=== PATIENT | female | born 1995 | race Caucasian/White ===

== ENCOUNTER 2016-08-23 18:34 | Emergency (ER) | payer OTHER ==
[~2016-08-23] VITALS: Ht 172.7 cm; Wt 112.0 kg
[~2016-08-23 18:34] MED LIST: AMOX500C PO; CYCL-331 PO; DEXT5TAB27 PO; ETON68IM3 SQ; HYDR-971 PO; IBUP800T19 PO; depo shot
[2016-08-23 18:57] VITALS: BP 135/66
[2016-08-23] MEDS ORDERED: IBUP600T16 PO (19:05)
[2016-08-23] MEDS ORDERED: TRAM-48 PO (19:05)
[2016-08-23] MEDS ORDERED: CYCL-331 PO (19:05)
--- NOTE | 2016-08-23 19:06 | PHYS DOC ---
Past History Past Medical History: No Pertinent History Past Surgical History: No Surgical History Smoking: Cigarettes Alcohol Use: None Drug Use: None Adult General Chief Complaint Chief Complaint: LOWER EXT PAIN HPI HPI Patient is a 4-year-old female who presents here today complaining of pain to her right gluteal region radiating down her right leg. 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 Patient reports that she injured her back several months ago and was on light duty for several months after the injury. Patient reports today she was complaining of discomfort to her U region radiating down her right leg. Patient has any weakness or paresthesias to her lower 70s. Patient denies any loss of bowel or bladder function. Patient denies any perineal paresthesias. Patient reports pain increases with any ambulation. Patient has any fevers shakes chills nausea vomiting diarrhea chest pain or shortness of breath. Patient is not allergic to any medications. Patient has no past medical history. No history of hypertension diabetes liver longer kidney problems. Patient does not smoke or do any drugs. Patient's physical exam is remarkable for tender to palpation to her right gluteal region. This is 100% reproducible to a cause her to come to the ED. Patient is able to and bili without any difficulty but does appear to be in some discomfort. Patient's motor strength is 5 out of 5 upper and lower extremities. Patient neurologically intact. She is alert awake oriented 3. Patient is a nonfocal neuro exam. Patient has no tenderness to C-spine T-spine or L-spine on palpation. Patient does not have any evidence of retroperitonitis. Patient does not have any evidence of an epidural abscess. Patient is not consistent with a kidney stone. Patient's ER hospital course was significant for receiving Flexeril Toradol and will be sent home with [place] ibuprofen and Flexeril. Patient's clinically hemodynamically stable. Patient was advised to follow up with her primary care physician workman's comp doctor for further evaluation and management of her sciatica-type pain. Review of Systems Review of Systems Constitutional: Denies fever or chills [] Eyes: Denies change in visual acuity, redness, or eye pain [] HENT: Denies nasal congestion or sore throat [] All other review systems are negative except as documented in the history of present illness portion. Allergies Allergies Allergies Coded Allergies Type Severity Reaction Last Updated Verified No Known Drug Allergies 08/22/14 No Physical Exam Physical Exam Constitutional: Well developed, well nourished, no acute distress, non-toxic appearance. [] HENT: Normocephalic, atraumatic, bilateral external ears normal, oropharynx moist, no oral exudates, nose normal. [] Eyes: PERRLA, EOMI, conjunctiva normal, no discharge. [] Neck: Normal range of motion, no tenderness, supple, no stridor. [] Cardiovascular:Heart rate regular Lungs & Thorax: Bilateral breath sounds clear Abdomen: Nondistended Skin: Warm, dry, Back: No tenderness, no CVA tenderness. [] Extremities: Tenderness to her right buttock region radiating down her right leg., no cyanosis, no clubbing, ROM intact, no edema orsymptomsconsistentwithDVT.. [] Neurologic: Alert and oriented X 3, normal motor function, normal sensory function, no focal deficits noted. [] Psychologic: Affect normal, judgement normal, mood normal. [] Current Patient Data Vital Signs Vital Signs Date Time Temp Pulse Resp B/P (MAP) Pulse Ox O2 Delivery O2 Flow Rate FiO2 08/23/16 18:57 98.7 83 20 97 Room Air EKG EKG [] Radiology/Procedures Radiology/Procedures [] Course & Med Decision Making Course & Med Decision Making Pertinent Labs and Imaging studies reviewed. (See chart for details) [] Dragon Disclaimer Dragon Disclaimer This chart was dictated in whole or in part using Voice Recognition software in a busy, high-work load, and often noisy Emergency Department environment. It may contain unintended and wholly unrecognized errors or omissions. Departure Departure: Impression: Primary Impression: Sciatica Disposition: HOME, SELF-CARE Condition: IMPROVED Referrals: ELVIRA HINES APRN (PCP) Patient Instructions: Sciatica with [facility] Scripts Tramadol Hcl (ULTRAM) 50 Mg Tablet 50 MG PO PRN Q6HRS Y for PAIN, #20 TAB Prov: YAMILET WOODS MD 08/23/16 Ibuprofen (IBUPROFEN) 600 Mg Tablet 600 MG PO QID Y for PAIN, #20 Prov: YAMILET WOODS MD 08/23/16 Cyclobenzaprine Hcl (CYCLOBENZAPRINE HCL) 10 Mg Tablet 1 TAB PO TID, #30 TAB Prov: YAMILET WOODS MD 08/23/16 Problem Qualifiers Primary Impression: Sciatica Laterality: right Qualified Codes: M54.31 - Sciatica, right side YAMILET WOODS MD August 23, 2016 19:06
[2016-08-23] MEDS ORDERED: traMADol 50 MG TABLET PO ONE (19:15)
[2016-08-23] MEDS ORDERED: KETOROLAC 30 MG/ML VIAL. IM ONE (19:15)
== END 2016-08-23 18:57 | disposition home or self-care (01) ==
LOC: ER 18:34
DX: M54.41 Lumbago with sciatica, right side (principal); F17.210 Nicotine dependence, cigarettes, uncomplicated
CPT/HCPCS: 96372; 99283; J1885

== ENCOUNTER 2017-01-25 23:06 | Emergency (ER) | payer OTHER ==
[~2017-01-25] VITALS: Ht 172.7 cm; Wt 110.6 kg
[~2017-01-25 23:06] MED LIST changes: +IBUP600T16 PO; +TRAM-48 PO
[2017-01-25] MEDS ORDERED: 0.9 % SODIUM CHLORIDE 10 ML DISP.SYRIN. IV PRN (23:15)
--- NOTE | 2017-01-25 23:19 | PHYS DOC ---
Past History Past Medical History: No Pertinent History Past Surgical History: No Surgical History Smoking: Cigarettes Alcohol Use: None Drug Use: None Adult General Chief Complaint Chief Complaint: abdominal pain and vaginal bleeding HPI HPI Patient is a pleasant whose last menstrual period was approximate 4 weeks ago. She presents with lower abdominal pain cramping and menorrhagia as she believes she might be having a miscarriage. Although she has no documented test at home she admits that she began a Depo-Provera shot 4 weeks ago and she had intercourse the first week which is not necessary protective. She's passed large clots with some she describes "" tissue. She's had super crampy abdominal pain that began earlier today. She was able to collect some the samples although she is discarded them she was supposed to follow-up with her primary care doctor today. She denies any dysuria urgency or frequency, back pain, nausea, vomiting or diarrhea. She dip denies any breast tenderness. 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 She denies any sick contacts, trauma or travel outside the country. She denies any history of ovarian cysts or ectopic . She also denies any use of infertility medications, prior instrumentation to her abdomen , or history of PID or sexual transmitted diseases. Patient's pain is moderate with no radiation to the back and is not change with position or activity. It does come in waves and makes her double over in pain when she hasn't. Review of Systems Review of Systems Constitutional: Denies fever or chills [] Eyes: Denies change in visual acuity, redness, or eye pain [] HENT: Denies nasal congestion or sore throat [] Respiratory: Denies cough or shortness of breath [] Cardiovascular: No additional information not addressed in HPI [] GI: He does complain of crampy lower abdominal pain with some nausea but no vomiting of bloody stools or diarrhea. : Denies dysuria or hematuria does complain of some mild vaginal bleeding and passage of clots.[] Musculoskeletal: Denies back pain or joint pain [] Integument: Denies rash or skin lesions [] Neurologic: Denies headache, focal weakness or sensory changes [] Endocrine: Denies polyuria or polydipsia [] Allergies Allergies Allergies Coded Allergies Type Severity Reaction Last Updated Verified No Known Drug Allergies 5/10/15 No Physical Exam Physical Exam Vital signs recorded on the chart within normal limits. Constitutional: Well developed, well nourished, no acute distress, non-toxic appearance. [] HENT: Normocephalic, atraumatic, bilateral external ears normal, oropharynx moist, no oral exudates, nose normal. [] Eyes: PERRLA, EOMI, conjunctiva normal, no discharge. [] Neck: Normal range of motion, no tenderness, supple, no stridor. [] Cardiovascular:Heart rate regular rhythm, no murmur [] Lungs & Thorax: Bilateral breath sounds clear to auscultation [] Abdomen: Bowel sounds normal, soft, no tenderness, no masses, no pulsatile masses. exam:[] Skin: Warm, dry, no erythema, no rash. [] Back: No tenderness, no CVA tenderness. [] Neurologic: Alert and oriented X 3 Psychologic: Affect normal, judgement normal, mood normal. [] Current Patient Data Lab Results Laboratory Tests Test 01/25/17 23:22 01/25/17 23:39 White Blood Count 11.6 x10^3/uL (4.0-11.0) H Red Blood Count 4.87 x10^6/uL (3.50-5.40) Hemoglobin 14.1 g/dL (12.0-15.5) Hematocrit 41.1 % (36.0-47.0) Mean Corpuscular Volume 84 fL (79-100) Mean Corpuscular Hemoglobin 29 pg (25-35) Mean Corpuscular Hemoglobin Concent 34 g/dL (31-37) Red Cell Distribution Width 13.7 % (11.5-14.5) Platelet Count 271 x10^3/uL (140-400) Neutrophils (%) (Auto) 59 % (31-73) Lymphocytes (%) (Auto) 28 % (24-48) Monocytes (%) (Auto) 9 % (0-9) Eosinophils (%) (Auto) 3 % (0-3) Basophils (%) (Auto) 1 % (0-3) Neutrophils # (Auto) 6.9 x10^3uL (1.8-7.7) Lymphocytes # (Auto) 3.2 x10^3/uL (1.0-4.8) Monocytes # (Auto) 1.1 x10^3/uL (0.0-1.1) Eosinophils # (Auto) 0.3 x10^3/uL (0.0-0.7) Basophils # (Auto) 0.1 x10^3/uL (0.0-0.2) Sodium Level 141 mmol/L (136-145) Potassium Level 3.9 mmol/L (3.5-5.1) Chloride Level 105 mmol/L (98-107) Carbon Dioxide Level 26 mmol/L (21-32) Anion Gap 10 (6-14) Blood Urea Nitrogen 13 mg/dL (7-20) Creatinine 1.0 mg/dL (0.6-1.0) Estimated GFR (Cockcroft-Gault) 70.7 Glucose Level 87 mg/dL (70-99) Calcium Level 9.0 mg/dL (8.5-10.1) Total Bilirubin 0.3 mg/dL (0.2-1.0) Direct Bilirubin 0.1 mg/dL (0.0-0.2) Aspartate Amino Transferase (AST) 13 U/L (15-37) L Alanine Aminotransferase (ALT) 36 U/L (14-59) Alkaline Phosphatase 85 U/L (46-116) Total Protein 7.3 g/dL (6.4-8.2) Albumin 3.9 g/dL (3.4-5.0) POC Urine HCG, Qualitative hcg negative (Negative) EKG EKG [] Radiology/Procedures Radiology/Procedures [] Course & Med Decision Making Course & Med Decision Making Pertinent Labs and Imaging studies reviewed. (See chart for details) Patient presented with suspicion of miscarriage in early she is in fact not . And she admits that she is not actively bleeding at this time. Patient will still consent to a CBC CMP and urinalysis. She is declined pelvic exam at this time. We will also not give her IV fluids or place a saline lock at this time per her request. Patient will be offered some Naprosyn for discharge home and Toradol this time for her dysmenorrhea. Patient's CBC is normal patient's CMP is normal patient's urine test is negative. [] Dragon Disclaimer Dragon Disclaimer This chart was dictated in whole or in part using Voice Recognition software in a busy, high-work load, and often noisy Emergency Department environment. It may contain unintended and wholly unrecognized errors or omissions. Departure Departure: Impression: Primary Impression: Dysmenorrhea Disposition: 01 HOME, SELF-CARE Condition: STABLE Referrals: ELVIRA HINES APRN (PCP) Patient Instructions: Abdominal Pain (Nonspecific), Dysmenorrhea Additional Instructions: My discharge plan Follow up: In addition patient is asked to followup with their primary doctor, within a week for followup examination and to address patient's ongoing medical conditions. Patient is advised that in the Emergency Department primary complaints are addressed and only in light of known signs and symptoms. Patient should return immediately to the emergency department if new signs and symptoms develop or patient's condition worsens in any way. At time of discharge patient was in stable condition and had verbalized understanding of the discharge instructions. Scripts Naproxen (NAPROSYN) 500 Mg Tablet 1 TAB PO BID, #20 TAB 1 Refill Prov: EDELMIRA TENA MD 01/26/17 EDELMIRA TENA MD Jan 25, 2017 23:19
[2017-01-25] MEDS ORDERED: IV NORMAL SALINE 1,000ML 1,000 ML IV SCH (23:30)
[2017-01-26 00:21] LABS: BASO # 0.1 x10^3/uL (0.0-0.2); BASO % 1 % (0-3); EOS # 0.3 x10^3/uL (0.0-0.7); EOS % 3 % (0-3); HEMATOCRIT 41.1 % (36.0-47.0); HEMOGLOBIN 14.1 g/dL (12.0-15.5); LYMPH # 3.2 x10^3/uL (1.0-4.8); LYMPH % 28 % (24-48); MEAN CORPUSCULAR HEMOGLOBIN 29 pg (25-35); MEAN CORPUSCULAR HGB CONC 34 g/dL (31-37); MEAN CORPUSCULAR VOLUME 84 fL (79-100); MONO # 1.1 x10^3/uL (0.0-1.1); MONO % 9 % (0-9); NEUT # 6.9 x10^3uL (1.8-7.7); NEUT % 59 % (31-73); PLATELET COUNT 271 x10^3/uL (140-400); RED BLOOD COUNT 4.87 x10^6/uL (3.50-5.40); RED CELL DISTRIBUTION WIDTH 13.7 % (11.5-14.5); WHITE BLOOD COUNT 11.6 x10^3/uL (4.0-11.0)
[2017-01-26 00:23] VITALS: BP 160/93
[2017-01-26 00:27] LABS: ALBUMIN 3.9 g/dL (3.4-5.0); DIRECT BILIRUBIN 0.1 mg/dL (0.0-0.2); GFR 70.7; POTASSIUM 3.9 mmol/L (3.5-5.1); TOTAL BILIRUBIN 0.3 mg/dL (0.2-1.0); TOTAL PROTEIN 7.3 g/dL (6.4-8.2)
[2017-01-26] MEDS ORDERED: KETOROLAC 60 MG/2 ML VIAL. IM ONE (00:30)
[2017-01-26] MEDS ORDERED: NAPR500T PO (00:38)
[2017-01-26 00:43] LABS: BILIRUBIN,URINE NEG (NEG); CLARITY,URINE HAZY; COLOR,URINE YELLOW; GLUCOSE,URINE NEG (NEG)
[2017-01-26 00:44] LABS: BACTERIA,URINE FEW /HPF (0-FEW); NITRITE,URINE NEG (NEG); SQUAMOUS EPITHELIAL CELL,UR FEW /LPF; UROBILINOGEN,URINE 0.2 mg/dL (0.2 mg/dL)
== END 2017-01-26 00:55 | disposition home or self-care (01) ==
LOC: ER 23:06
DX: N94.6 Dysmenorrhea, unspecified (principal); F17.210 Nicotine dependence, cigarettes, uncomplicated
CPT/HCPCS: 36415; 80048; 80076; 81001; 81025; 84702; 85025; 96372; 99284; J1885

== ENCOUNTER 2017-06-11 22:33 | Emergency (ER) | payer OTHER ==
[~2017-06-11] VITALS: Ht 172.7 cm; Wt 105.0 kg
[2017-06-11] MEDS: IV NORMAL SALINE 1,000ML 1,000 ML IV SCH (00:02)
[2017-06-11] MEDS: ONDANSETRON ODT 4 MG TAB.RAPDIS PO ONE (00:05)
[~2017-06-11 22:33] MED LIST changes: +NAPR-683 PO
--- NOTE | 2017-06-11 22:36 | ED.ADGEN ---
Past History Past Medical History: No Pertinent History Past Surgical History: No Surgical History Smoking: Cigarettes Alcohol Use: None Drug Use: None Adult General Chief Complaint Chief Complaint " I got this Rt. flank pain... I want to vomit.. I had a chemical of .. Methotrexate.. at [facility].. I had some bleeding at first but that is all over with..."Now it hurts to pee..." HPI HPI Patient is a 22 year old female who presents with above hx and complaints nausea , flank pain, malaise, dysuria. Patient recently underwent methotrexate induced on 05/21. Patient reports initially some bleeding but now that has resolved. Patient still has some vaginal discharge. Patient has had approximately less 50 sex partners in lifetime. No history of STDs. Has had diagnosis of bacterial vaginosis. No history of trauma. 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 . No history immunosuppression. No history of travel. Patient localizes her pain to the right lower quadrant. No history of kidney stones. No history of ovarian cysts. Denies any history of intake bad food. Denies any history of constipation or diarrhea. Patient denies any change in stool characteristics. Review of Systems Review of Systems Constitutional: Denies fever or chills [] Eyes: Denies change in visual acuity, redness, or eye pain [] HENT: Denies nasal congestion or sore throat [] Respiratory: Denies cough or shortness of breath [] Cardiovascular: No additional information not addressed in HPI [] GI: Complaints are right lower quadrant abdominal pain, nausea,. Denies vomiting, bloody stools or diarrhea [] : Denies dysuria or hematuria [] Musculoskeletal: Denies back pain or joint pain [] Integument: Denies rash or skin lesions [] Neurologic: Denies headache, focal weakness or sensory changes [] Endocrine: Denies polyuria or polydipsia [] All other systems were reviewed and found to be within normal limits, except as documented in this note. Family History Family History Noncontributory Current Medications Current Medications Current Medications Medications (Trade) Dose Ordered Sig/Wang Start Time Stop Time Status Last Admin Dose Admin Azithromycin (Zithromax) 1,000 mg 1X ONCE 06/12/17 01:15 06/12/17 01:16 DC 06/12/17 01:42 1,000 MG Ceftriaxone Sodium 1 gm/ Sodium Chloride 50 ml @ 100 mls/hr 1X ONCE 06/12/17 01:15 06/12/17 01:44 UNV Ceftriaxone Sodium (Rocephin) 1 gm ONCE ONCE 06/12/17 01:30 06/12/17 01:31 DC 06/12/17 01:42 1 GM Info (Do NOT chart on this entry -- for MONITORING) 1 each PRN DAILY PRN 06/12/17 00:15 06/12/17 02:19 DC 06/12/17 00:26 1 EACH Iohexol (Omnipaque 300 Mg/ml) 75 ml 1X ONCE 06/12/17 00:00 06/12/17 00:05 DC 06/12/17 00:26 75 ML Ketorolac Tromethamine (Toradol) 30 mg 1X ONCE 06/12/17 01:15 06/12/17 01:17 DC 06/12/17 01:42 30 MG Metronidazole (Flagyl) 2,000 mg 1X ONCE 06/12/17 01:15 06/12/17 01:17 DC 06/12/17 01:43 2,000 MG Ondansetron HCl (Zofran Odt) 8 mg 1X ONCE 06/11/17 23:00 06/11/17 23:01 DC 06/11/17 00:05 8 MG Ondansetron HCl (Zofran) 8 mg 1X ONCE 06/12/17 01:15 06/12/17 01:17 DC 06/12/17 01:47 8 MG Sodium Chloride 1,000 ml @ 1,000 mls/hr Q1H 06/11/17 23:00 06/11/17 23:59 DC 06/11/17 00:02 1,000 MLS/HR Allergies Allergies Allergies Coded Allergies Type Severity Reaction Last Updated Verified No Known Drug Allergies 08/22/14 No Physical Exam Physical Exam Constitutional: Well developed, well nourished, moderately acute distress, non- toxic appearance. [] HENT: Normocephalic, atraumatic, bilateral external ears normal, oropharynx moist, no oral exudates, nose normal. [] Eyes: PERRLA, EOMI, conjunctiva normal, no discharge. [] Neck: Normal range of motion, no tenderness, supple, no stridor. [] Cardiovascular:Heart rate regular rhythm, no murmur [] Lungs & Thorax: Bilateral breath sounds clear to auscultation [] Abdomen: Bowel sounds normal, soft, right lower quadrant tenderness, no masses, no pulsatile masses. No flank tenderness. Rebound to Rt. lower flank. Vaginal discharge. Cervical motion tenderness. Rt. adnexal tenderness. Skin: Warm, dry, no erythema, no rash. [] Back: No tenderness, no CVA tenderness. [] Extremities: No tenderness, no cyanosis, no clubbing, ROM intact, no edema. [] Mild Rt. psoas and heel tap. Neurologic: Alert and oriented X 3, normal motor function, normal sensory function, no focal deficits noted. [] Psychologic: Affect anxious, judgement normal, mood normal. [] Current Patient Data Vital Signs Vital Signs Date Time Temp Pulse Resp B/P (MAP) Pulse Ox O2 Delivery O2 Flow Rate FiO2 06/12/17 01:52 68 16 138/95 (109) 100 Room Air 06/11/17 22:33 98.0 Lab Results Laboratory Tests Test 06/11/17 22:49 06/11/17 22:54 06/11/17 23:43 Urine Collection Type Unknown Urine Color Yellow Urine Clarity Clear Urine pH 5.5 Urine Specific [place] 1.015 Urine Protein Neg (NEG-TRACE) Urine Glucose (UA) Neg mg/dL (NEG) Urine Ketones (Stick) Neg mg/dL (NEG) Urine Blood Neg (NEG) Urine Nitrite Neg (NEG) Urine Bilirubin Neg (NEG) Urine Urobilinogen Dipstick 0.2 mg/dL (0.2 mg/dL) Urine Leukocyte Esterase Neg (NEG) Urine RBC 0 /HPF (0-2) Urine WBC Occ /HPF (0-4) Urine Squamous Epithelial Cells Few /LPF Urine Bacteria 0 /HPF (0-FEW) Urine Opiates Screen Neg (NEG) Urine Methadone Screen Neg (NEG) Urine Barbiturates Neg (NEG) Urine Phencyclidine Screen Neg (NEG) Urine Amphetamine/Methamphetamine Neg (NEG) Urine Benzodiazepines Screen Neg (NEG) Urine Cocaine Screen Neg (NEG) Urine Cannabinoids Screen Neg (NEG) Urine Ethyl Alcohol Neg (NEG) POC Urine HCG, Qualitative hcg negative (Negative) White Blood Count 11.4 x10^3/uL (4.0-11.0) H Red Blood Count 4.74 x10^6/uL (3.50-5.40) Hemoglobin 14.0 g/dL (12.0-15.5) Hematocrit 40.8 % (36.0-47.0) Mean Corpuscular Volume 86 fL (79-100) Mean Corpuscular Hemoglobin 30 pg (25-35) Mean Corpuscular Hemoglobin Concent 34 g/dL (31-37) Red Cell Distribution Width 13.4 % (11.5-14.5) Platelet Count 261 x10^3/uL (140-400) Neutrophils (%) (Auto) 64 % (31-73) Lymphocytes (%) (Auto) 26 % (24-48) Monocytes (%) (Auto) 8 % (0-9) Eosinophils (%) (Auto) 2 % (0-3) Basophils (%) (Auto) 0 % (0-3) Neutrophils # (Auto) 7.2 x10^3uL (1.8-7.7) Lymphocytes # (Auto) 3.0 x10^3/uL (1.0-4.8) Monocytes # (Auto) 0.9 x10^3/uL (0.0-1.1) Eosinophils # (Auto) 0.2 x10^3/uL (0.0-0.7) Basophils # (Auto) 0.0 x10^3/uL (0.0-0.2) Prothrombin Time 10.2 SEC (9.4-11.4) Prothrombin Time INR 1.0 (0.9-1.1) PTT 25 SEC (23-33) Maternal Serum HCG Beta Subunit 6 mIU/mL (0-6) Sodium Level 140 mmol/L (136-145) Potassium Level 3.5 mmol/L (3.5-5.1) Chloride Level 104 mmol/L (98-107) Carbon Dioxide Level 28 mmol/L (21-32) Anion Gap 8 (6-14) Blood Urea Nitrogen 9 mg/dL (7-20) Creatinine 0.9 mg/dL (0.6-1.0) Estimated GFR (Cockcroft-Gault) 79.0 Glucose Level 83 mg/dL (70-99) Calcium Level 9.1 mg/dL (8.5-10.1) Total Bilirubin 0.5 mg/dL (0.2-1.0) Direct Bilirubin 0.1 mg/dL (0.0-0.2) Aspartate Amino Transferase (AST) 19 U/L (15-37) Alanine Aminotransferase (ALT) 32 U/L (14-59) Alkaline Phosphatase 81 U/L (46-116) Total Protein 7.0 g/dL (6.4-8.2) Albumin 3.7 g/dL (3.4-5.0) Lipase 105 U/L (73-393) Microbiology 06/11/17 Wet Prep - Final, Complete Laboratory Tests Test 06/11/17 22:49 06/11/17 22:54 06/11/17 23:43 Urine Collection Type Unknown Urine Color Yellow Urine Clarity Clear Urine pH 5.5 Urine Specific [place] 1.015 Urine Protein Neg (NEG-TRACE) Urine Glucose (UA) Neg mg/dL (NEG) Urine Ketones (Stick) Neg mg/dL (NEG) Urine Blood Neg (NEG) Urine Nitrite Neg (NEG) Urine Bilirubin Neg (NEG) Urine Urobilinogen Dipstick 0.2 mg/dL (0.2 mg/dL) Urine Leukocyte Esterase Neg (NEG) Urine RBC 0 /HPF (0-2) Urine WBC Occ /HPF (0-4) Urine Squamous Epithelial Cells Few /LPF Urine Bacteria 0 /HPF (0-FEW) Urine Opiates Screen Neg (NEG) Urine Methadone Screen Neg (NEG) Urine Barbiturates Neg (NEG) Urine Phencyclidine Screen Neg (NEG) Urine Amphetamine/Methamphetamine Neg (NEG) Urine Benzodiazepines Screen Neg (NEG) Urine Cocaine Screen Neg (NEG) Urine Cannabinoids Screen Neg (NEG) Urine Ethyl Alcohol Neg (NEG) POC Urine HCG, Qualitative hcg negative (Negative) White Blood Count 11.4 x10^3/uL (4.0-11.0) H Red Blood Count 4.74 x10^6/uL (3.50-5.40) Hemoglobin 14.0 g/dL (12.0-15.5) Hematocrit 40.8 % (36.0-47.0) Mean Corpuscular Volume 86 fL (79-100) Mean Corpuscular Hemoglobin 30 pg (25-35) Mean Corpuscular Hemoglobin Concent 34 g/dL (31-37) Red Cell Distribution Width 13.4 % (11.5-14.5) Platelet Count 261 x10^3/uL (140-400) Neutrophils (%) (Auto) 64 % (31-73) Lymphocytes (%) (Auto) 26 % (24-48) Monocytes (%) (Auto) 8 % (0-9) Eosinophils (%) (Auto) 2 % (0-3) Basophils (%) (Auto) 0 % (0-3) Neutrophils # (Auto) 7.2 x10^3uL (1.8-7.7) Lymphocytes # (Auto) 3.0 x10^3/uL (1.0-4.8) Monocytes # (Auto) 0.9 x10^3/uL (0.0-1.1) Eosinophils # (Auto) 0.2 x10^3/uL (0.0-0.7) Basophils # (Auto) 0.0 x10^3/uL (0.0-0.2) Prothrombin Time 10.2 SEC (9.4-11.4) Prothrombin Time INR 1.0 (0.9-1.1) PTT 25 SEC (23-33) Maternal Serum HCG Beta Subunit 6 mIU/mL (0-6) Sodium Level 140 mmol/L (136-145) Potassium Level 3.5 mmol/L (3.5-5.1) Chloride Level 104 mmol/L (98-107) Carbon Dioxide Level 28 mmol/L (21-32) Anion Gap 8 (6-14) Blood Urea Nitrogen 9 mg/dL (7-20) Creatinine 0.9 mg/dL (0.6-1.0) Estimated GFR (Cockcroft-Gault) 79.0 Glucose Level 83 mg/dL (70-99) Calcium Level 9.1 mg/dL (8.5-10.1) Total Bilirubin 0.5 mg/dL (0.2-1.0) Direct Bilirubin 0.1 mg/dL (0.0-0.2) Aspartate Amino Transferase (AST) 19 U/L (15-37) Alanine Aminotransferase (ALT) 32 U/L (14-59) Alkaline Phosphatase 81 U/L (46-116) Total Protein 7.0 g/dL (6.4-8.2) Albumin 3.7 g/dL (3.4-5.0) Lipase 105 U/L (73-393) Microbiology 06/11/17 Wet Prep - Final, Complete EKG EKG [] Radiology/Procedures Radiology/Procedures CT of abdomen shows no obvious surgical processes. Ovarian cyst on right. My interpretation of acute abdomen shows[] no acute cardiopulmonary findings. No free air under the diaphragm. Nipple studs. Increased stool Course & Med Decision Making Course & Med Decision Making Pertinent Labs and Imaging studies reviewed. (See chart for details). She stay on a clear fluid diet. No solid or milk products. Take Keflex 500 x3 times a day. Follow-up primary pending cultures. Vaginal rest. Must follow up pending labs and cultures. [] Final Impression Final Impression 1. Abdomen Pain 2. Dysuria[] 3. Leukocytosis 4. Ovarian Cysts 5. Bacterial Vaginosis Problems: Dragon Disclaimer Dragon Disclaimer This electronic medical record was generated, in whole or in part, using a voice recognition dictation system. VIDHI SONI MD Jun 11, 2017 22:36
[2017-06-11 23:24] LABS: BARBITURATES NEG (NEG); BENZODIAZEPINES NEG (NEG); CANNABINOIDS NEG (NEG); COCAINE NEG (NEG); METHADONE NEG (NEG); OPIATES NEG (NEG); PHENCYCLIDINE NEG (NEG)
[2017-06-11 23:26] LABS: AMPHETAMINE/METHAMPHETAMINE NEG (NEG)
[2017-06-11 23:31] LABS: BACTERIA,URINE 0 /HPF (0-FEW); BILIRUBIN,URINE NEG (NEG); CLARITY,URINE CLEAR; COLOR,URINE YELLOW; GLUCOSE,URINE NEG (NEG); NITRITE,URINE NEG (NEG); RBC,URINE 0 /HPF (0-2); SQUAMOUS EPITHELIAL CELL,UR FEW /LPF; UROBILINOGEN,URINE 0.2 mg/dL (0.2 mg/dL); WBC,URINE OCC /HPF (0-4)
[2017-06-12 00:10] LABS: BASO % 0 % (0-3); EOS # 0.2 x10^3/uL (0.0-0.7); EOS % 2 % (0-3); HEMATOCRIT 40.8 % (36.0-47.0); LYMPH % 26 % (24-48); MEAN CORPUSCULAR HEMOGLOBIN 30 pg (25-35); MEAN CORPUSCULAR HGB CONC 34 g/dL (31-37); MEAN CORPUSCULAR VOLUME 86 fL (79-100); MONO # 0.9 x10^3/uL (0.0-1.1); MONO % 8 % (0-9); NEUT # 7.2 x10^3uL (1.8-7.7); NEUT % 64 % (31-73); PLATELET COUNT 261 x10^3/uL (140-400); RED BLOOD COUNT 4.74 x10^6/uL (3.50-5.40); RED CELL DISTRIBUTION WIDTH 13.4 % (11.5-14.5); WHITE BLOOD COUNT 11.4 x10^3/uL (4.0-11.0)
[2017-06-12 00:21] LABS: ALBUMIN 3.7 g/dL (3.4-5.0); CALCIUM 9.1 mg/dL (8.5-10.1); CREATININE 0.9 mg/dL (0.6-1.0); DIRECT BILIRUBIN 0.1 mg/dL (0.0-0.2); POTASSIUM 3.5 mmol/L (3.5-5.1); TOTAL BILIRUBIN 0.5 mg/dL (0.2-1.0)
[2017-06-12] MEDS: CONTRAST GIVEN MC PRN (00:26)
[2017-06-12] MEDS: IOHEXOL 300 MG/ML 75 ML VIAL. IV ONE (00:26)
--- NOTE | 2017-06-12 00:39 | RAD ---
CT ABD PELV W/ IV CONTRST ONLY dated 06/12/2017 12:13 AM Indication: Abdominal pain.RLQ ABDOMINAL PAIN X 2 DAYS, PATIENT HAD A CHEMICAL 05/21/17
NO HX OF ANY ABDOMINAL SURGERIES IN THE PAST
NO PREVIOUS FOR COMPARISON
GAVE OMNI 300 75ML IV - TOLERATED WELL. Comparison: No comparison is available. Technique: Contiguous axial imaging of the abdomen and pelvis performed after the administration of 75 cc Omnipaque 300. One or more of the following individualized dose reduction techniques were utilized for this examination: 1. Automated exposure control 2. Adjustment of the mA and/or kV according to patient size 3. Use of iterative reconstruction technique Findings: Limited images of lung bases are clear. Heart size within normal limits. No pleural or pericardial effusion. Liver, spleen, pancreas, adrenal glands, gallbladder and kidneys are unremarkable. Unopacified GI tract normal in caliber and contour. No focal bowel wall thickening. The appendix is normal in caliber. No ascites or lymphadenopathy. Abdominal aorta normal in caliber. Images of pelvis show mildly distended urinary bladder. Uterus and adnexa are unremarkable. 1.7 cm right ovarian cyst. No free fluid or pelvic lymphadenopathy. Bone windows show no acute findings. IMPRESSION: 1. No acute abnormality of abdomen or pelvis. Normal appendix. 2. Small right ovarian cyst. Electronically signed by: Terrence Solano MD (06/12/2017 12:36 AM) [id number]
[2017-06-12] MEDS ORDERED: CEPH-264 PO (01:10)
[2017-06-12] MEDS ORDERED: HYDR-79 PO (01:10)
[2017-06-12] MEDS: AZITHROMYCIN 250 MG TABLET. PO ONE (01:42)
[2017-06-12] MEDS: cefTRIAXone IV Push 1 GM VIAL. IVP ONE (01:42)
[2017-06-12] MEDS: KETOROLAC 30 MG/ML VIAL. IV ONE (01:42)
[2017-06-12] MEDS: metroNIDAZOLE 500 MG TABLET PO ONE (01:43)
[2017-06-12] MEDS: ONDANSETRON PF 4 MG/2 ML VIAL. IV ONE (01:47)
[2017-06-12 01:52] VITALS: BP 138/95
--- NOTE | 2017-06-12 07:56 | RAD ---
Acute abdomen series with chest, 3 views, 06/11/2017: History: Abdominal pain The abdominal gas pattern is unremarkable without evidence of obstruction. No free air seen in the abdomen. There is no evidence of organomegaly or abnormal abdominal calcifications. The heart size is normal. The lungs are clear. There is no evidence of pleural fluid. IMPRESSION: No acute abdominal abnormality is detected.
[2017-06-13 14:12] LABS: CHLAMYDIA PROBE Negative (Negative)
== END 2017-06-12 01:55 | disposition home or self-care (01) ==
LOC: ER 22:33
DX: N76.0 Acute vaginitis (principal); B96.89 Other specified bacterial agents as the cause of diseases classified elsewhere; N83.201 Unspecified ovarian cyst, right side; D72.829 Elevated white blood cell count, unspecified; F17.210 Nicotine dependence, cigarettes, uncomplicated
CPT/HCPCS: 36415; 74022; 74177; 80048; 80076; 80307; 81001; 81025; 83690; 84702; 85025; 85610; 85730; 87491; 87591; 96361; 96374; 96375; 99285; J0456; J0696; J1885; J2405; Q0111; Q0162; Q9967; G0479; J7030

== ENCOUNTER → 2017-09-06 | Outpatient (CLI) | payer SELFPAY ==
[~2017-09-06] MED LIST changes: +CEPH-264 PO; +HYDR-79 PO
--- NOTE | 2017-09-06 13:10 | RAD ---
EXAM: Left shoulder, 3 views. HISTORY: Pain. COMPARISON: None. FINDINGS: 3 views of the left shoulder obtained. There is no fracture, dislocation or subluxation. IMPRESSION: No acute osseous finding. Electronically signed by: Lyric Reich MD (09/06/2017 1:07 PM) [place] [id number]
== END | disposition home or self-care (01) ==
LOC: PMG 10:38
PROVIDERS: ATTEND Physician Assistant
DX: M25.512 Pain in left shoulder (principal)
CPT/HCPCS: 73030

== ENCOUNTER → 2018-01-15 | Outpatient (CLI) | payer OTHER ==
--- NOTE | 2018-01-15 13:52 | RAD ---
Obstetrical ultrasound, 01/15/2018: HISTORY: Uterine size/date discrepancy There is a single intrauterine fetus in a cephalic orientation. The biparietal diameter measures 4.6 cm compatible with a gestational age of 20 weeks. This corresponds well to the other measurements with the average gestational age of calculated at 20 weeks and 1 day yielding a sonographic EDC of 06/03/2017. No previous ultrasound exam is currently available for direct comparison. Normal activity and heart motion were seen. A 4 chamber heart is evident with a heart rate of 153 bpm. Fluid is identified in the bladder and stomach. The visualized portions of the spine and kidneys are unremarkable. A three-vessel umbilical cord is evident with a normal cord insertion site. The placenta lies posteriorly with no evidence of a placenta previa. A normal amount of amniotic fluid is present. The cervical length was estimated at 4.3 cm. The maternal ovaries were not identified. IMPRESSION: Single viable intrauterine fetus of approximately 20 weeks gestational age as described above. Electronically signed by: Ramon Galdamez MD (01/15/2018 1:48 PM) [facility]
== END | disposition home or self-care (01) ==
LOC: US 10:41
PROVIDERS: ATTEND Obstetrics & Gynecology
DX: O26.842 Uterine size-date discrepancy, second trimester (principal); Z3A.20 20 weeks gestation of pregnancy
CPT/HCPCS: 76805